=== PATIENT | male | born 1975 | race African-American/Black ===

== ENCOUNTER 2021-11-24 21:49 | Emergency (ER) | payer MEDICAID, OTHER ==
[~2021-11-24] VITALS: Ht 175.3 cm; Wt 66.0 kg
[2021-11-24] MEDS ORDERED: IBUPROFEN 800MG TABLET PO ONE (22:30)
[2021-11-25 00:29] VITALS: BP 121/85
[2021-11-25] MEDS ORDERED: IBUP-2030 MT (01:14)
== END 2021-11-25 01:49 | disposition home or self-care (01) ==
LOC: ER 21:49
DX: S83.8X2A Sprain of other specified parts of left knee, initial encounter (principal); W18.39XA Other fall on same level, initial encounter; Y93.89 Activity, other specified; Y92.89 Other specified places as the place of occurrence of the external cause; Y99.8 Other external cause status; Z98.890 Other specified postprocedural states
CPT/HCPCS: 73562; 99283; L1830